=== PATIENT | male | born 1955 ===

== ENCOUNTER 2018-09-12 07:14 | Emergency (ER) | payer OTHER ==
[2018-09-12 07:27] VITALS: TEMP 97; O2SAT 98
[2018-09-12 07:28] VITALS: BMI 28.6
--- NOTE | 2018-09-12 08:39 | ED PDOC ---
Upper Extremity Pain/Injury Time Seen by Provider: 09/12/18 07:41 Chief Complaint (Nursing): Upper Extremity Problem/Injury Chief Complaint (Provider): Upper Extremity Problem/Injury History Per: Patient, Family History/Exam Limitations: no limitations Onset/Duration Of Symptoms: Days (x1) Additional Complaint(s): 62 year old male with no past medical history who is presenting to the ED for ev aluation of right hand pain and swelling onset s/p fall yesterday. History as per daughter who is preferred instructional support specialist, and she states that patient twisted hand when he fell and this morning could not handle the pain. Daughter reports that patient took Diclofenac for knee pain and has not taken any other medications. Patient denies any numbness or tingling and offers no other medical complaints at this time. PMD: Howard Zhu Past Medical History Reviewed: Historical Data, Nursing Documentation, Vital Signs Vital Signs: Last Vital Signs Temp 97 F L 09/12/18 07:26 Pulse 93 H 09/12/18 07:26 Resp 18 09/12/18 07:26 BP 148/92 H 09/12/18 07:26 Pulse Ox 98 09/12/18 07:26 - Medical History PMH: No Chronic Diseases - Surgical History Surgical History: Hernia Repair - Family History Family History: States: Unknown Family Hx - Social History Current smoker - smoking cessation education provided: No Alcohol: None Drugs: Denies - Immunization History Hx Tetanus Toxoid Vaccination: No Hx Influenza Vaccination: No Hx Pneumococcal Vaccination: No - Home Medications Home Medications: Ambulatory Orders Medication Instructions Recorded Acetaminophen with Codeine 1 tab PO Q6H PRN #10 tab 09/12/18 [Tylenol with Codeine No. 3 300 mg-30 mg] - Allergies Allergies/Adverse Reactions: Allergies Allergy/AdvReac Type Severity Reaction Status Date / Time No Known Allergies Allergy Verified 09/12/18 07:38 Review of Systems ROS Statement: Except As Marked, All Systems Reviewed And Found Negative Musculoskeletal: Positive for: Hand Pain Neurological: Negative for: Numbness, Other (tingling ) Physical Exam - Reviewed Nursing Documentation Reviewed: Yes Vital Signs Reviewed: Yes - Physical Exam Appears: Positive for: Non-toxic, No Acute Distress Head Exam: Positive for: ATRAUMATIC, NORMAL INSPECTION, NORMOCEPHALIC Skin: Positive for: Normal Color, Warm, DRY Eye Exam: Positive for: Normal appearance Extremity: Positive for: Capillary Refill (less than 2 seconds ), Other (ecchymosis to medial palm and 5th digit anteriorly; decreased ROM due to pain, full ROM at wrist ). Negative for: Deformity Neurological/Psych: Positive for: Awake, Alert, Normal Tone, Oriented. Negative for: Motor/Sensory Deficits - ECG O2 Sat by Pulse Oximetry: 98 (RA) Pulse Ox Interpretation: Normal Medical Decision Making Medical Decision Making: Time: 7:59 Plan: --X-Ray Right Hand --X-Ray Right Wrist Accession No. : [id number] Patient Name / ID : BRUCE CAGLE / [id number] Exam Date : 09/12/2018 07:49:42 ( Approved ) Study Comment : Sex / Age : M / 62Y Creator : Cortes Fernandez MD Dictator : Cortes Fernandez MD Paper Tube Cutter : Interlocking Tower Operator : Cortes Fernandez MD Approver2 : Report Date : 09/12/2018 10:42:16 My Comment : PROCEDURE: Right Hand Radiographs. HISTORY: Fall COMPARISON: Comparison made with concurrent radiographs of the right wrist TECHNIQUE: 3 views obtained. FINDINGS: BONES: Normal. No fracture. JOINTS: Normal. No osteoarthritic changes. SOFT TISSUES: Normal. OTHER FINDINGS: None. IMPRESSION: No definitive radiographic evidence of acute displaced fracture nor dislocation. If symptoms persist or occult fracture suspected clinically consider repeat radiographs in 7-10 days as most fractures should become radiographically evident in this timeframe. Accession No. : [id number] Patient Name / ID : BRUCE CAGLE / [id number] Exam Date : 09/12/2018 07:52:00 ( Approved ) Study Comment : Sex / Age : M / 62Y Creator : Cortes Fernandez MD Dictator : Cortes Fernandez MD Paper Tube Cutter : Interlocking Tower Operator : Cortes Fernandez MD Approver2 : Report Date : 09/12/2018 10:41:00 My Comment : Date of service: 09/12/2018 PROCEDURE: Right Wrist Radiographs. HISTORY: Fall COMPARISON: Comparison made with concurrent radiographs of the right hand FINDINGS: BONES: Normal. No fracture. JOINTS: Normal. No dislocation. SOFT TISSUES: Normal. OTHER FINDINGS: None. IMPRESSION: No definitive radiographic evidence of acute displaced fracture nor dislocation. If symptoms persist or occult fracture suspected clinically consider repeat radiographs in 7-10 days as most fractures should become radiographically evident in this timeframe. Bhupendra wrap placed. Scribe Attestation: Documented by Mi Denney, acting as a scribe for Windy Cueto MD. Provider Scribe Attestation: All medical record entries made by the Scribe were at my direction and personally dictated by me. I have reviewed the chart and agree that the record accurately reflects my personal performance of the history, physical exam, medical decision making, and the department course for this patient. I have also personally directed, reviewed, and agree with the discharge instructions and disposition. Disposition - Clinical Impression Clinical Impression: Hand contusion - Disposition Disposition: Routine/Home Disposition Time: 10:49 Condition: IMPROVED Additional Instructions: FOLLOW-UP WITH PMD WITHIN 2 DAYS FOR REEVALUATION. Prescriptions: Acetaminophen with Codeine [Tylenol with Codeine No. 3 300 mg-30 mg] 1 tab PO Q6H PRN #10 tab PRN Reason: Pain, Severe (8-10) Instructions: Contusion (DC) Forms: [employer] (Hungarian) Print Language: BELARUSIAN
[2018-09-12] MEDS ORDERED: Oxycodone/Acetaminophen 5/325 mg Tab ONE (09:01)
--- NOTE | 2018-09-12 10:46 | RAD ---
PROCEDURE: Right Hand Radiographs. HISTORY: Fall COMPARISON: Comparison made with concurrent radiographs of the right wrist TECHNIQUE: 3 views obtained. FINDINGS: BONES: Normal. No fracture. JOINTS: Normal. No osteoarthritic changes. SOFT TISSUES: Normal. OTHER FINDINGS: None. IMPRESSION: No definitive radiographic evidence of acute displaced fracture nor dislocation. If symptoms persist or occult fracture suspected clinically consider repeat radiographs in 7-10 days as most fractures should become radiographically evident in this timeframe.
--- NOTE | 2018-09-12 10:47 | RAD ---
Date of service: 09/12/2018 PROCEDURE: Right Wrist Radiographs. HISTORY: Fall COMPARISON: Comparison made with concurrent radiographs of the right hand FINDINGS: BONES: Normal. No fracture. JOINTS: Normal. No dislocation. SOFT TISSUES: Normal. OTHER FINDINGS: None. IMPRESSION: No definitive radiographic evidence of acute displaced fracture nor dislocation. If symptoms persist or occult fracture suspected clinically consider repeat radiographs in 7-10 days as most fractures should become radiographically evident in this timeframe.
[2018-09-12 10:56] VITALS: BP 140/87; PULSE 86; RESP 16
== END 2018-09-12 10:55 | disposition home or self-care (01) ==
LOC: H.ER 07:14
DX: S60.221A Contusion of right hand, initial encounter (principal); W19.XXXA Unspecified fall, initial encounter